=== PATIENT | male | born 1955 | race African-American/Black ===

== ENCOUNTER 2020-02-20 22:09 | Emergency (ER) | payer BC, MEDICAID, OTHER ==
[2020-02-20] MEDS ORDERED: Morphine 2 MG/ML SYRINGE ONE (22:34)
[2020-02-20] MEDS ORDERED: Ondansetron PF 4 MG/2 ML Vial ONE (22:35)
[2020-02-20 22:39] LABS: #Lymphocytes 1.9 thou/uL (1.20-3.40); #Monocytes 0.4 thou/uL (0.11-0.59); #Neutrophils 3.7 thou/uL (1.40-6.50); %Basophils 0.6 % (0.0-1.0); %Eosinophils 0.7 % (0.0-10.0); %Lymphocytes 31.1 % (21.0-51.0); %Monocytes 6.3 % (0.0-10.0); %Neutrophils 61.3 % (42.0-75.0); Hemoglobin 12.5 g/dL (14.0-18.0); Mean Corpuscular HGB CONC 31.5 g/dL (32.0-36.0); Mean Corpuscular Hemoglobin 27.2 pg (27.0-31.0); Mean Corpuscular Volume 86.3 fL (78.0-98.0); Mean Platelet Volume 5.1 fL (7.4-10.4); Platelet Count 233 thou/uL (130-400); RBC Distribution Width 13.3 % (11.5-14.5); Red Blood Cell (RBC) Count 4.61 mill/uL (4.70-6.10); White Blood Cell (WBC) Count 6.1 thou/uL (4.8-10.8)
[2020-02-20 22:49] LABS: ALT (SGPT) 11 U/L (8-55); AST (SGOT) 12 U/L (5-34); Albumin 3.8 g/dL (3.4-4.8); Alkaline Phosphatase 76 U/L (40-110); Anion Gap 13 mmol/L (10-20); BUN (Urea Nitrogen) 26 mg/dL (8.4-25.7); Bilirubin, Total 0.7 mg/dL (0.2-1.2); CK (CPK) 209 U/L (30-200); Calc. Creatinine Clearance 0 mL/min (70-130); Carbon Dioxide 25 mmol/L (23-31); Chloride 106 mmol/L (98-107); Estimated GFR-MDRD 20; Globulin 3.8 g/dL (2.4-3.5); Glucose 95 mg/dL (80-115); Lipase 55 U/L (8-78); Potassium 3.9 mmol/L (3.5-5.1); Protein, Total 7.6 g/dL (5.8-8.1); Sodium 140 mmol/L (136-145)
[2020-02-20] MEDS ORDERED: Metoprolol Tartrate 5 MG/5 ML VIAL ONE (23:09)
--- NOTE | 2020-02-20 23:21 | CT ---
CT ABDOMEN AND PELVIS WITHOUT CONTRAST 02/20/[address] shows the lung bases are clear. The liver, spleen, pancreas, gallbladder, adrenal glands, kidneys and abdominal aorta showed no acute findings. The gallbladder is seen poorly and an ultrasound would be better at ensuring there is no s ign of stones. The bowel shows no distention or wall thickening. The mesenteric nodes appear normal. The appendix wa s identified. It is 7 mm wide which is borderline, but I do not see any stranding or other signs of i nflammation around it. No free air or free fluid was present. There is no sign of calculi in the urin bhumika tract. CT of the pelvis shows no pelvic masses, inflammatory changes, or free fluid. IMPRESSION: 1. No acute findings. No signs of urinary tract pathology to cause pain. 2. Appendix is 7 mm wide which is borderline, but there are no other findings to strongly suppor t appendicitis at this time. Depending upon the patient's clinical course, there could be the need f or follow-up imaging. Findings discussed with Dr. Whittaker at 2253 on 02/20/20. POS: HOME
== END 2020-02-20 23:42 | disposition short-term general hospital (02) ==
LOC: BURERS 22:09
DX: N17.9 Acute kidney failure, unspecified (principal); R29.810 Facial weakness; I10 Essential (primary) hypertension; E78.00 Pure hypercholesterolemia, unspecified; E11.9 Type 2 diabetes mellitus without complications; Z79.84 Long term (current) use of oral hypoglycemic drugs; Z79.899 Other long term (current) drug therapy
CPT/HCPCS: 74176; 80053; 82550; 83605; 83690; 84484; 85025; 93005; 96374; 96375; J2270; J2405